=== PATIENT | female | born 1960 | race Hispanic/Latino ===

== ENCOUNTER 2017-08-29 09:57 | Emergency (ER) | payer BC ==
[2017-08-29] MEDS ORDERED: ACETAMINOPHEN 325 MG TAB ONE (10:08)
[2017-08-29 10:27] LABS: RAPID GROUP A STREP POSITIVE (NEGATIVE)
[2017-08-29] MEDS ORDERED: IBUPROFEN 600 MG TABLET ONE (10:50)
== END 2017-08-29 11:23 | disposition home or self-care (01) ==
LOC: EDH 09:57
DX: J02.0 Streptococcal pharyngitis (principal); M19.90 Unspecified osteoarthritis, unspecified site; Z88.1 Allergy status to other antibiotic agents; Z90.710 Acquired absence of both cervix and uterus; Z98.51 Tubal ligation status
CPT/HCPCS: 87804; 87880

== ENCOUNTER 2019-06-03 19:58 | Emergency (ER) | payer BC ==
[2019-06-03 20:20] LABS: BASOPHILS % (AUTO) 0.8 % (0.0-5.0); EOSINOPHILS % (AUTO) 1.8 % (0.0-8.0); HEMATOCRIT 44.8 % (36-48); LYMPHOCYTES % (AUTO) 28.9 % (21.0-51.0); MEAN CORPUSCULAR HEMOGLOBIN 28.9 pg (27.0-33.0); MEAN CORPUSCULAR HGB CONC 32.6 g/dL (32.0-36.0); MEAN CORPUSCULAR VOLUME 88.5 fL (79-99); MONOCYTES % (AUTO) 6.4 % (3.0-13.0); PLATELET COUNT (AUTO) 280 K/uL (130-400); RED BLOOD CELL COUNT(AUTO) 5.06 MIL/uL (4.00-5.50); RED CELL DISTRIBUTION WIDTH 12.5 % (11.0-15.5); WHITE BLOOD COUNT (AUTO) 7.9 K/uL (4.8-10.8)
[2019-06-03 20:29] LABS: CREATININE 0.7 mg/dL (0.5-1.5); POTASSIUM 3.8 mmol/L (3.5-5.1)
[2019-06-03 20:33] LABS: INR 0.92 (0.85-1.15); PARTIAL THROMBOPLASTIN TIME 29.6 SEC (26.3-35.5)
[2019-06-03 20:34] LABS: ALBUMIN 3.9 g/dL (3.5-5.0); BILIRUBIN,TOTAL 0.2 mg/dL (0.2-1.0); TOTAL PROTEIN, SERUM 8.5 g/dL (6.0-8.3)
[2019-06-03] MEDS ORDERED: ASPIRIN 325 MG TABLET ONE (21:46)
[2019-06-03] MEDS ORDERED: NITROGLYCERIN 1GM/1 INCH PACKET TD ONE (21:47)
== END 2019-06-03 23:58 | disposition home or self-care (01) ==
LOC: EDH 19:58
DX: R07.89 Other chest pain (principal); M19.90 Unspecified osteoarthritis, unspecified site; Z90.49 Acquired absence of other specified parts of digestive tract; Z88.5 Allergy status to narcotic agent; Z88.8 Allergy status to other drugs, medicaments and biological substances
CPT/HCPCS: 36415; 71045; 80053; 82550; 84484; 85025; 85610; 85730; 93005